=== PATIENT | female | born 1990 | race Caucasian/White ===

== ENCOUNTER 2024-01-22 13:31 | Inpatient (IN) | payer OTHER ==
[2024-01-22] VITALS (7 sets, daily range): BP systolic 111–163; BP diastolic 62–84
[~2024-01-22] VITALS: Ht 157.5 cm; Wt 68.7 kg
[2024-01-22] MEDS ORDERED: METHYLERGONOVINE MALEATE 0.2MG/ML 1ML VIAL IM PRN (14:00)
[2024-01-22] MEDS ORDERED: TRANEXAMIC ACID INJection 1,000 MG in NS 100 ML IV PRN (14:00)
[2024-01-22] MEDS ORDERED: OXYTOCIN INJ 10UNITS/ML 1ML VIAL IM PRN (14:00)
[2024-01-22] MEDS: LR 1,000 ML IV SCH (14:00)
[2024-01-22] MEDS ORDERED: OXYTOCIN DRIP 30 UNITS in IV 1 EA IV PRN (14:00)
[2024-01-22] MEDS ORDERED: CARBOPROST TROMETHAMINE 250 MCG/ML AMP IM PRN (14:00)
[2024-01-22] MEDS ORDERED: LIDOCAINE 1% MDV 20ML VIAL INFIL PRN (14:00)
[2024-01-22] MEDS ORDERED: HOME MED LIST COMPLETE! XX SCH (14:15)
[2024-01-22] MEDS ORDERED: EPINEPHrine INJ 1 MG/ML 1ML AMP IM STA (14:39)
[2024-01-22] MEDS: miSOPROStol 50MCG 1/2 TABLET PO SCH (14:47)
[2024-01-22 14:56] LABS: HEMATOCRIT 34.1 % (36.0-47.0); HEMOGLOBIN 11.1 g/dl (12.0-15.5); MEAN CORPUSCULAR HEMOGLOBIN 28.4 pg (27.0-33.0); MEAN CORPUSCULAR HGB CONC 32.6 g/dl (32.0-36.5); MEAN CORPUSCULAR VOLUME 87.2 fl (80.0-96.0); PLATELET COUNT, AUTOMATED 368 10^3/uL (150-450); RED BLOOD COUNT 3.91 10^6/uL (4.00-5.40); WHITE BLOOD COUNT 12.6 10^3/uL (4.0-10.0)
[2024-01-22 15:12] LABS: URIC ACID 5.5 MG/DL (3.1-7.8)
[2024-01-22 15:14] LABS: LDH LACTATE DEHYDROGENASE 232 U/L (120-246)
[2024-01-22 15:15] LABS: ALT/SGPT 15 U/L (7.0-40); AST/SGOT 30 U/L (<34); BILIRUBIN,TOTAL 0.4 MG/DL (0.3-1.2); CREATININE FOR GFR 0.67 MG/DL (0.55-1.30); GLOMERULAR FILTRATION RATE > 60.0 (>60)
[2024-01-22 15:40] LABS: CREATININE,RANDOM URINE 45.6 MG/DL; TOTAL PROTEIN,RANDOM URINE < 6.0 MG/DL (0.0-14.0)
[2024-01-22] MEDS: AMPICILLIN SOD 2 GM in D5W MINI-BAG PLUS 100 ML IV ONE (16:24)
[2024-01-22] MEDS: AMPICILLIN SOD 1 GM in D5W MINI-BAG PLUS 100 ML IV SCH (20:03)
[2024-01-22] MEDS: PROMETHAZINE 25MG/ML 1ML VIAL IV PRN (22:18)
[2024-01-22] MEDS: BUTORPHANOL 2 MG/ML 1ML VIAL IV PRN (22:19)
[2024-01-23] VITALS (21 sets, daily range): BP systolic 98–141; BP diastolic 55–87; O2SAT 97
[2024-01-23] MEDS: LACTATED RINGER'S 1000 ML IV STA (02:13)
[2024-01-23] MEDS ORDERED: EPIDURAL/PCA KEYS XX PRN (02:50)
[2024-01-23] MEDS ORDERED: ePHEDrine SULFATE 25 MG/5 ML(5MG/ML) SYRINGE IVP PRN (02:50)
[2024-01-23] MEDS ORDERED: diphenhydrAMINE 50MG/ML VIAL IV PRN (02:50)
[2024-01-23] MEDS ORDERED: LR 500 ML IV PRN (02:50)
[2024-01-23] MEDS ORDERED: NALOXONE INJ 0.4MG/1ML VIAL IV PRN (02:50)
[2024-01-23] MEDS: FENTANYL/ROPIVACAINE/NACL BAG 100 ML EPIDURAL SCH (02:53)
[2024-01-23] MEDS: ONDANSETRON 4MG 2ML VIAL IV PRN (03:31)
[2024-01-23] MEDS: OXYTOCIN DRIP 30 UNITS in IV 1 EA IV PRN (03:58)
[2024-01-23] MEDS ORDERED: MOM 30ML SUSPENSION UDC PO PRN (04:10)
[2024-01-23] MEDS ORDERED: METOCLOPRAMIDE INJ 10MG/2ML VIAL IV PRN (04:10)
[2024-01-23] MEDS ORDERED: METHYLERGONOVINE MALEATE 0.2 MG TAB PO PRN (04:10)
[2024-01-23] MEDS ORDERED: LR 1,000 ML IV SCH (04:10)
[2024-01-23] MEDS ORDERED: RHOGAM 300MCG (1500IU) INJ IM SCH (04:10)
[2024-01-23] MEDS ORDERED: ACETAMINOPHEN TAB 650MG DOSE (2X325MG) PO PRN (04:10)
[2024-01-23] MEDS: OXYTOCIN DRIP 30 UNITS in IV 1 EA IV SCH ×2 (04:10→04:28)
[2024-01-23] MEDS ORDERED: IBUPROFEN 600MG TAB PO PRN (04:10)
[2024-01-23] MEDS: ACETAMINOPHEN 500 MG TAB PO PRN (05:25)
[2024-01-23] MEDS: DIBUCAINE 1% OINTMENT 30GM TOP PRN (06:16)
[2024-01-23] MEDS: IBUPROFEN 800 MG TAB PO PRN (06:21)
[2024-01-23] MEDS: PRENATAL VITAMINS CHEWABLE TABLET PO SCH (07:33)
[2024-01-23] MEDS: DOCUSATE SODIUM 100MG CAPSULE PO PRN (18:03)
[2024-01-24 05:42] VITALS: BP 115/64; O2SAT 98
[2024-01-25] MEDS ORDERED: MEASLES,MUMPS,RUBELLA VACCINE INJ (MMR-II) SC.IMMUN ONE (09:00)
== END 2024-01-24 13:00 | disposition home or self-care (01) | DRG 807 ==
LOC: M LDI 13:31 → M OBS 01-23 05:55
PROVIDERS: ADMIT Obstetrics & Gynecology; ATTEND Obstetrics & Gynecology
PROC: 3E0P7GC Introduction of Other Therapeutic Substance into Female Reproductive, Via Natural or Artificial Opening (ICD-10-PCS; 2024-01-22)
PROC: 10E0XZZ Delivery of Products of Conception, External Approach (ICD-10-PCS; principal; 2024-01-23)
PROC: 10907ZC Drainage of Amniotic Fluid, Therapeutic from Products of Conception, Via Natural or Artificial Opening (ICD-10-PCS; 2024-01-23)
DX: O41.03X0 Oligohydramnios, third trimester, not applicable or unspecified (principal); Z37.0 Single live birth; O48.0 Post-term pregnancy; O13.4 Gestational [pregnancy-induced] hypertension without significant proteinuria, complicating childbirth; O99.824 Streptococcus B carrier state complicating childbirth; Z3A.41 41 weeks gestation of pregnancy; O69.81X0 Labor and delivery complicated by cord around neck, without compression, not applicable or unspecified